=== PATIENT | female | born 1935 | race Two or more races ===

== ENCOUNTER 2022-12-19 11:47 | Outpatient (CLI) | payer OTHER ==
[~2022-12-19 11:47] MED LIST: PRILOSEC10 MG; ZESTRIL20 MG
== END 2022-12-19 12:02 | disposition home or self-care (01) ==
LOC: RAD 11:47
PROVIDERS: ATTEND Orthopaedic Surgery
DX: M25.551 Pain in right hip (principal)

== ENCOUNTER 2023-04-30 15:39 | Emergency (ER) | payer OTHER ==
[~2023-04-30] VITALS: Ht 152.4 cm; Wt 77.1 kg
[2023-04-30] MEDS ORDERED: LEVOTHYROXINE50 MCG PO (15:51)
[2023-04-30] MEDS ORDERED: OMEPRAZOLE20 MG PO (15:51)
[2023-04-30] MEDS ORDERED: LISINOPRIL40 MG PO (15:51)
[2023-04-30] MEDS ORDERED: EZETIMIBE10 MG PO (15:52)
[2023-04-30] MEDS ORDERED: ADULT LOW DOSE81 M1 PO (15:52)
[2023-04-30] MEDS ORDERED: ATORVASTATIN CA20 MG PO (15:52)
[2023-04-30] MEDS ORDERED: DONEPEZIL HCL23 MG PO (15:53)
[2023-04-30] MEDS ORDERED: HYDROCHLOROTHIA25 MG PO (15:53)
[2023-04-30] MEDS ORDERED: MEMANTINE HCL10 MG PO (15:54)
== END 2023-04-30 20:39 | disposition home or self-care (01) ==
LOC: ER 15:39
PROVIDERS: Emergency Medicine
DX: R53.1 Weakness (principal)

== ENCOUNTER 2023-05-29 16:30 | Emergency (ER) | payer OTHER ==
[~2023-05-29] VITALS: Ht 154.9 cm; Wt 90.7 kg
[~2023-05-29 16:30] MED LIST changes: +ADULT LOW DOSE81 M1 PO; +AMLODIPINE BESYL5 MG PO; +ARICEPT10 MG PO; +ATORVASTATIN CA20 MG PO; +CALCIUM 500-VI1 EAC6 PO; +COLACE100 MG PO; +CYMBALTA30 MG PO; +DONEPEZIL HCL23 MG PO; +EZETIMIBE10 MG PO; +GABAPENTIN300 MG PO; +HYDROCHLOROTHIA25 MG PO; +LEVOTHYROXINE50 MCG PO; +LIDODERM1 EACH TOP; +LISINOPRIL40 MG PO; +MEMANTINE HCL10 MG PO; +NAMENDA10 MG PO; +OMEPRAZOLE20 MG PO; +PROTEINEX-18 LI30 ML PO
[2023-05-29 18:17] LABS: PH,URINE 5.5 (5.0-8.0); URINE APPEARANCE Clear; URINE BILIRRUBIN Negative (NEGATIVE); URINE BLOOD Negative; URINE COLOR Yellow; URINE GLUCOSE Negative (NEGATIVE); URINE LEUKOCYTE Negative; URINE NITRATE Negative; URINE PROTEIN Trace (NEGATIVE); URINE UROBILINOGEN 0.2 E.U./dl
[2023-05-29 18:18] LABS: HEMATOCRIT 40.8 % (36.0-45.00); HEMOGLOBIN 14.2 g/dL (12.0-15.00); MEAN CELL VOLUME 93.8 fL (80.00-100.00); MEAN CORPUSCULAR HEMOGLOBIN 32.6 pg (27.00-32.0); MEAN CORPUSCULAR HGB CONC 34.8 g/dl (32.0-36.0); PLATELET COUNT 138 K/uL (150-450); RED BLOOD COUNT 4.35 M/uL (4.00-6.00); RED CELL DISTRIBUTION WIDTH 14.5 % (11.5-14.5)
[2023-05-29 18:21] LABS: URINE BACTERIA 13.8 uL (0.0-1933); URINE EPITHELIAL CELLS 4.4 uL (0.0-38.8)
[2023-05-29 18:36] LABS: URINE RBC 1.2 uL (0.0-20.8); URINE WBC 1.2 uL (0.0-23.2)
[2023-05-29 18:42] LABS: CALCIUM 9.2 mg/dL (8.5-10.1); CREATININE SERUM 1.57 mg/dL (0.55-1.02); GFR 31.24; POTASSIUM 4.35 mEq/L (3.5-5.1)
== END 2023-05-30 00:15 | disposition home or self-care (01) ==
LOC: ER 16:30
PROVIDERS: General Practice
DX: R50.9 Fever, unspecified (principal); I10 Essential (primary) hypertension; M19.90 Unspecified osteoarthritis, unspecified site; E11.9 Type 2 diabetes mellitus without complications
CPT/HCPCS: 36415; 71045; 96365; 96366; 99284; J3490; J7042

== ENCOUNTER 2023-06-03 14:25 | Inpatient (IN) | payer OTHER ==
[~2023-06-03] VITALS: Ht 160 cm; Wt 72.6 kg
[2023-06-03 15:40] LABS: HEMATOCRIT 41.8 % (36.0-45.00); HEMOGLOBIN 13.8 g/dL (12.0-15.00); MEAN CELL VOLUME 95.2 fL (80.00-100.00); MEAN CORPUSCULAR HEMOGLOBIN 31.4 pg (27.00-32.0); PLATELET COUNT 175 K/uL (150-450); RED BLOOD COUNT 4.39 M/uL (4.00-6.00); RED CELL DISTRIBUTION WIDTH 14.7 % (11.5-14.5)
--- NOTE | 2023-06-03 15:42 | NUR ---
2:30 PTE FEMINA DE 87 ANOS LLEGA A ER LETARGICA, HIPOACTIVA SE PASA A UNIDAD DE CRITICO POR ORDEN DE CUAL ORDENA ENTUBAR A LA PTE. 2:40 PTE ES ENTUBADA EXITOSAMENTE POR CON TUBO #7.5 FIJADO EN COMISURA LABIAL 22. SE ADMINISTRAN MEDICAMENTOS BRIDGETTE ORDEN MEDICA, SE CANALIZA A PTE EN AMBOS BRAZOS CON ANGIO #20 AREAS LIBRES DE EDEMA Y ERITEMA. SE INSERTA JOSÉ PTE EGRESA ORINA COLOR AMARILLO INTENSO. SE CONECTA A MONITOR CARDIACO Y OXIMETRIA. SE MANTIENE EN OBSERVACION POR CAMBIOS SIGNIFICATIVOS. PTE EN VENTILADOR MECANICO.SE LE MOHIT MUESTRAS DE MILDRED.
[2023-06-03 15:56] LABS: INR 1.14; PROTHROMBIN TIME 11.9 SECONDS (9.0-11.5)
[2023-06-03 15:58] LABS: CALCIUM 7.8 mg/dL (8.5-10.1); CREATININE SERUM 2.37 mg/dL (0.55-1.02); GFR 19.42; POTASSIUM 5.17 mEq/L (3.5-5.1)
[2023-06-03 16:01] LABS: ABG PH 7.448 (7.35-7.45); ABG pCO2 29.1 mmHg (35-45); BASE EXCESS -2.9 mmol/l; BICARBONATE 19.7 mmol/l (23-25); Tco2 20.6 mmol/l
[2023-06-03 16:09] LABS: PH,URINE 8.5 (5.0-8.0); URINE APPEARANCE Turbid; URINE BILIRRUBIN Negative (NEGATIVE); URINE BLOOD Small; URINE COLOR Dark Yellow; URINE GLUCOSE Negative (NEGATIVE); URINE LEUKOCYTE Large; URINE NITRATE Negative
[2023-06-03 16:12] LABS: URINE RBC 57.9 uL (0.0-20.8); URINE WBC 883.1 uL (0.0-23.2)
[2023-06-03 16:29] LABS: URINE BACTERIA > 9821.5 uL (0.0-1933); URINE PROTEIN 100 (NEGATIVE)
[2023-06-03 19:24] LABS: ABG PO2 566.4 mmHg (80-100)
[2023-06-03 19:27] LABS: allen test SATISFACTORY; o2 100 %; puncture site RADIAL LEFT
[2023-06-04 05:38] LABS: ABG PO2 141.2 mmHg (80-100); ABG pCO2 29.4 mmHg (35-45); BASE EXCESS -3.8 mmol/l; BICARBONATE 19.1 mmol/l (23-25); SaO2 99.2 %
[2023-06-04 06:50] LABS: allen test SATISFACTORY; o2 35 %; puncture site RADIAL RIGHT
[2023-06-04 07:15] LABS: HEMATOCRIT 37.9 % (36.0-45.00); HEMOGLOBIN 12.7 g/dL (12.0-15.00); MEAN CELL VOLUME 94.5 fL (80.00-100.00); MEAN CORPUSCULAR HEMOGLOBIN 31.6 pg (27.00-32.0); MEAN CORPUSCULAR HGB CONC 33.5 g/dl (32.0-36.0); RED BLOOD COUNT 4.01 M/uL (4.00-6.00); RED CELL DISTRIBUTION WIDTH 14.4 % (11.5-14.5)
[2023-06-04 07:26] LABS: ALBUMIN 2.4 gm/dL (3.4-5.0); BILIRUBIN TOTAL 0.66 mg/dL (0.3-1.2); CALCIUM 7.1 mg/dL (8.5-10.1); CREATININE SERUM 1.66 mg/dL (0.55-1.02); GFR 29.29; GLOBULINA 3.2 G/DL (2.4-3.5); MAGNESIUM 2.3 mg/dL (1.8-2.4); PHOSPHOROUS 3.5 mg/dL (2.5-4.9); POTASSIUM 3.83 mEq/L (3.5-5.1); TOTAL PROTEIN 5.6 gm/dL (6.4-8.2)
[2023-06-04 07:35] LABS: PLATELET COUNT 116 K/uL (150-450)
[2023-06-04 11:58] LABS: INR 1.1; PARTIAL THROMBOPLASTIN TIME 24.8 SECONDS (22.0-34.0); PROTHROMBIN TIME 11.5 SECONDS (9.0-11.5)
[2023-06-05 06:37] LABS: HEMOGLOBIN 11.6 g/dL (12.0-15.00); MEAN CELL VOLUME 95.5 fL (80.00-100.00); MEAN CORPUSCULAR HEMOGLOBIN 31.6 pg (27.00-32.0); MEAN CORPUSCULAR HGB CONC 33.1 g/dl (32.0-36.0); RED BLOOD COUNT 3.66 M/uL (4.00-6.00); RED CELL DISTRIBUTION WIDTH 14.7 % (11.5-14.5)
[2023-06-05 06:52] LABS: ALBUMIN 2.1 gm/dL (3.4-5.0); BILIRUBIN TOTAL 0.67 mg/dL (0.3-1.2); CALCIUM 6.9 mg/dL (8.5-10.1); CREATININE SERUM 1.04 mg/dL (0.55-1.02); GFR 50.24; GLOBULINA 2.8 G/DL (2.4-3.5); MAGNESIUM 2.2 mg/dL (1.8-2.4); PHOSPHOROUS 2.9 mg/dL (2.5-4.9); POTASSIUM 3.95 mEq/L (3.5-5.1); TOTAL PROTEIN 4.9 gm/dL (6.4-8.2)
[2023-06-05 07:04] LABS: PLATELET COUNT 91 K/uL (150-450)
[2023-06-05 08:24] LABS: ABG PH 7.401 (7.35-7.45); ABG PO2 126.4 mmHg (80-100); ABG pCO2 28.9 mmHg (35-45); BASE EXCESS -5.7 mmol/l; BICARBONATE 17.5 mmol/l (23-25); SaO2 98.8 %; Tco2 18.4 mmol/l
[2023-06-05 08:25] LABS: allen test SATISFACTORY; o2 30 %; puncture site RADIAL RIGHT
[2023-06-05 15:34] LABS: PH,URINE 5.5 (5.0-8.0); URINE APPEARANCE Clear; URINE BILIRRUBIN Negative (NEGATIVE); URINE BLOOD Negative; URINE COLOR Yellow; URINE GLUCOSE Negative (NEGATIVE); URINE LEUKOCYTE Moderate; URINE NITRATE Negative; URINE PROTEIN Negative (NEGATIVE); URINE UROBILINOGEN 0.2 E.U./dl
[2023-06-05 15:37] LABS: URINE BACTERIA 100.7 uL (0.0-1933); URINE EPITHELIAL CELLS 22.2 uL (0.0-38.8); URINE RBC 8.9 uL (0.0-20.8); URINE WBC 93.8 uL (0.0-23.2)
[2023-06-06 06:49] LABS: HEMATOCRIT 29.9 % (36.0-45.00); MEAN CELL VOLUME 96.7 fL (80.00-100.00); MEAN CORPUSCULAR HGB CONC 33.5 g/dl (32.0-36.0); RED BLOOD COUNT 3.09 M/uL (4.00-6.00); RED CELL DISTRIBUTION WIDTH 14.6 % (11.5-14.5)
[2023-06-06 07:00] LABS: MEAN CORPUSCULAR HEMOGLOBIN 32.3 pg (27.00-32.0); PLATELET COUNT 75 K/uL (150-450)
[2023-06-06 07:22] LABS: ALBUMIN 1.9 gm/dL (3.4-5.0); BILIRUBIN TOTAL 0.58 mg/dL (0.3-1.2); CALCIUM 7.1 mg/dL (8.5-10.1); CREATININE SERUM 0.76 mg/dL (0.55-1.02); GFR 72.16; GLOBULINA 2.6 G/DL (2.4-3.5); MAGNESIUM 2.2 mg/dL (1.8-2.4); POTASSIUM 3.42 mEq/L (3.5-5.1); TOTAL PROTEIN 4.5 gm/dL (6.4-8.2)
[2023-06-06 07:31] LABS: PHOSPHOROUS 1.8 mg/dL (2.5-4.9)
[2023-06-06 07:51] LABS: ABG PH 7.537 (7.35-7.45); ABG PO2 134.2 mmHg (80-100); ABG pCO2 22.2 mmHg (35-45); BASE EXCESS -1.8 mmol/l; BICARBONATE 18.5 mmol/l (23-25); SaO2 99.3 %; Tco2 19.2 mmol/l
[2023-06-06 07:59] LABS: allen test SATISFACTORY; o2 30 %; puncture site RADIAL LEFT
[2023-06-07 06:37] LABS: HEMATOCRIT 28.7 % (36.0-45.00); MEAN CELL VOLUME 97.8 fL (80.00-100.00); MEAN CORPUSCULAR HGB CONC 33.2 g/dl (32.0-36.0); RED BLOOD COUNT 2.93 M/uL (4.00-6.00)
[2023-06-07 06:38] LABS: HEMOGLOBIN 9.5 g/dL (12.0-15.00); MEAN CORPUSCULAR HEMOGLOBIN 32.4 pg (27.00-32.0); PLATELET COUNT 86 K/uL (150-450)
[2023-06-07 07:03] LABS: ALBUMIN 1.8 gm/dL (3.4-5.0); BILIRUBIN TOTAL 0.55 mg/dL (0.3-1.2); CREATININE SERUM 0.78 mg/dL (0.55-1.02); GFR 70.03; GLOBULINA 2.8 G/DL (2.4-3.5); TOTAL PROTEIN 4.6 gm/dL (6.4-8.2)
[2023-06-07 07:33] LABS: ABG PH 7.367 (7.35-7.45); ABG PO2 139.8 mmHg (80-100); ABG pCO2 33.6 mmHg (35-45); BASE EXCESS -5.5 mmol/l; BICARBONATE 18.8 mmol/l (23-25); Tco2 19.9 mmol/l
[2023-06-07 07:36] LABS: allen test SATISFACTORY; puncture site RADIAL LEFT
[2023-06-07 07:37] LABS: o2 30 %
[2023-06-08 06:26] LABS: ABG PH 7.419 (7.35-7.45); ABG PO2 165.6 mmHg (80-100); ABG pCO2 33.3 mmHg (35-45); SaO2 99.5 %
[2023-06-08 06:27] LABS: BASE EXCESS -2.5 mmol/l; BICARBONATE 21.1 mmol/l (23-25); Tco2 22.1 mmol/l
[2023-06-08 06:28] LABS: allen test SATISFACTORY; puncture site RADIAL RIGHT
[2023-06-08 06:29] LABS: o2 30 %
[2023-06-08 08:11] LABS: BILIRUBIN TOTAL 0.53 mg/dL (0.3-1.2); CALCIUM 8.4 mg/dL (8.5-10.1); CREATININE SERUM 0.65 mg/dL (0.55-1.02); GFR 86.42; GLOBULINA 3.1 G/DL (2.4-3.5); MAGNESIUM 1.8 mg/dL (1.8-2.4); PHOSPHOROUS 2.8 mg/dL (2.5-4.9); POTASSIUM 4.19 mEq/L (3.5-5.1); TOTAL PROTEIN 5.1 gm/dL (6.4-8.2)
[2023-06-08 08:29] LABS: HEMATOCRIT 29.9 % (36.0-45.00); HEMOGLOBIN 10.6 g/dL (12.0-15.00); MEAN CELL VOLUME 94.8 fL (80.00-100.00); MEAN CORPUSCULAR HEMOGLOBIN 33.6 pg (27.00-32.0); MEAN CORPUSCULAR HGB CONC 35.4 g/dl (32.0-36.0); RED BLOOD COUNT 3.16 M/uL (4.00-6.00); RED CELL DISTRIBUTION WIDTH 15.1 % (11.5-14.5)
[2023-06-08 09:08] LABS: PLATELET COUNT 110 K/uL (150-450)
[2023-06-08 11:46] LABS: ABG PH 7.381 (7.35-7.45); ABG pCO2 36.6 mmHg (35-45); BASE EXCESS -3.2 mmol/l; BICARBONATE 21.3 mmol/l (23-25); SaO2 98.5 %; Tco2 22.4 mmol/l
[2023-06-08 11:47] LABS: allen test SATISFACTORY; o2 40 %; puncture site RADIAL RIGHT
[2023-06-10 05:53] LABS: ABG PH 7.396 (7.35-7.45); ABG PO2 143.6 mmHg (80-100); ABG pCO2 42.6 mmHg (35-45); BASE EXCESS 0.5 mmol/l; BICARBONATE 25.5 mmol/l (23-25); SaO2 99.2 %; Tco2 26.8 mmol/l
[2023-06-10 06:14] LABS: allen test SATISFACTORY; o2 40 %; puncture site RADIAL RIGHT
[2023-06-10 07:07] LABS: HEMATOCRIT 28.6 % (36.0-45.00); HEMOGLOBIN 9.5 g/dL (12.0-15.00); MEAN CELL VOLUME 96.7 fL (80.00-100.00); MEAN CORPUSCULAR HEMOGLOBIN 32.2 pg (27.00-32.0); MEAN CORPUSCULAR HGB CONC 33.3 g/dl (32.0-36.0); RED BLOOD COUNT 2.96 M/uL (4.00-6.00); RED CELL DISTRIBUTION WIDTH 14.9 % (11.5-14.5)
[2023-06-10 07:28] LABS: PLATELET COUNT 116 K/uL (150-450)
[2023-06-10 07:36] LABS: ALBUMIN 1.7 gm/dL (3.4-5.0); BILIRUBIN TOTAL 0.36 mg/dL (0.3-1.2); CALCIUM 8.4 mg/dL (8.5-10.1); CREATININE SERUM 0.54 mg/dL (0.55-1.02); GFR 107.04; MAGNESIUM 1.5 mg/dL (1.8-2.4); PHOSPHOROUS 2.3 mg/dL (2.5-4.9); POTASSIUM 3.66 mEq/L (3.5-5.1); TOTAL PROTEIN 4.7 gm/dL (6.4-8.2)
[2023-06-11 08:07] LABS: HEMOGLOBIN 9.7 g/dL (12.0-15.00); MEAN CELL VOLUME 95.6 fL (80.00-100.00); MEAN CORPUSCULAR HEMOGLOBIN 33.1 pg (27.00-32.0); MEAN CORPUSCULAR HGB CONC 34.6 g/dl (32.0-36.0); PLATELET COUNT 141 K/uL (150-450); RED BLOOD COUNT 2.93 M/uL (4.00-6.00); RED CELL DISTRIBUTION WIDTH 15.3 % (11.5-14.5)
[2023-06-13 07:00] LABS: HEMATOCRIT 28.6 % (36.0-45.00); HEMOGLOBIN 9.8 g/dL (12.0-15.00); MEAN CELL VOLUME 97.3 fL (80.00-100.00); MEAN CORPUSCULAR HEMOGLOBIN 33.2 pg (27.00-32.0); MEAN CORPUSCULAR HGB CONC 34.1 g/dl (32.0-36.0); RED BLOOD COUNT 2.94 M/uL (4.00-6.00); RED CELL DISTRIBUTION WIDTH 15.3 % (11.5-14.5)
[2023-06-13 07:11] LABS: ALBUMIN 1.7 gm/dL (3.4-5.0); BILIRUBIN TOTAL 0.39 mg/dL (0.3-1.2); CALCIUM 8.1 mg/dL (8.5-10.1); CREATININE SERUM 0.65 mg/dL (0.55-1.02); GFR 86.42; GLOBULINA 3.1 G/DL (2.4-3.5); PHOSPHOROUS 2.2 mg/dL (2.5-4.9); POTASSIUM 3.96 mEq/L (3.5-5.1); TOTAL PROTEIN 4.8 gm/dL (6.4-8.2)
[2023-06-13 07:59] LABS: MAGNESIUM 1.3 mg/dL (1.8-2.4)
[2023-06-13 08:06] LABS: PLATELET COUNT 148 K/uL (150-450)
[2023-06-14] MEDS ORDERED: INTEGRA PLUS C1 EACH PO (12:35)
[2023-06-14] MEDS ORDERED: TOPROL XL25 M1 PO (12:36)
[2023-06-14] MEDS ORDERED: LISINOPRIL10 MG PO (12:36)
[2023-06-14] MEDS ORDERED: CALCIUM 500-VI1 EAC6 PO (12:37)
[2023-06-14] MEDS ORDERED: PRE PROTEIN 2030 ML PO (12:38)
[2023-06-14] MEDS ORDERED: OMEPRAZOLE20 M2 PO (12:39)
[2023-06-14] MEDS ORDERED: ECOTRIN81 MG PO (12:40)
[2023-06-14] MEDS ORDERED: DRIZALMA SPRINK20 MG PO (12:40)
[2023-06-14] MEDS ORDERED: ZETIA10 MG PO (12:41)
[2023-06-14] MEDS ORDERED: ATORVASTATIN CA20 MG PO (12:42)
[2023-06-14] MEDS ORDERED: D3-501250 MCG PO (12:43)
[2023-06-14] MEDS ORDERED: NAMENDA10 MG PO (12:44)
[2023-06-14] MEDS ORDERED: LEVOTHYROXINE50 MC1 PO (12:45)
[2023-06-14] MEDS ORDERED: DOCUSATE SODIU100 M1 PO (12:46)
== END 2023-06-14 20:03 | disposition home or self-care (01) | DRG 871 ==
LOC: ER 14:25 → ICU 19:50 → MEDI 06-10 20:09
PROVIDERS: General Practice; Internal Medicine Nephrology; Internal Medicine Pulmonary Disease; Student in an Organized Health Care Education/Training Program; ADMIT Internal Medicine; ATTEND Internal Medicine
PROC: 0BH17EZ Insertion of Endotracheal Airway into Trachea, Via Natural or Artificial Opening (ICD-10-PCS; principal; 2023-06-03)
PROC: 5A1945Z Respiratory Ventilation, 24-96 Consecutive Hours (ICD-10-PCS; 2023-06-03)
PROC: BW21ZZZ Computerized Tomography (CT Scan) of Abdomen and Pelvis (ICD-10-PCS; 2023-06-03)
PROC: 3E0F7GC Introduction of Other Therapeutic Substance into Respiratory Tract, Via Natural or Artificial Opening (ICD-10-PCS; 2023-06-03)
PROC: 4A12X4Z Monitoring of Cardiac Electrical Activity, External Approach (ICD-10-PCS; 2023-06-03)
PROC: 02HV33Z Insertion of Infusion Device into Superior Vena Cava, Percutaneous Approach (ICD-10-PCS; 2023-06-04)
PROC: 0DH67UZ Insertion of Feeding Device into Stomach, Via Natural or Artificial Opening (ICD-10-PCS; 2023-06-04)
PROC: B020ZZZ Computerized Tomography (CT Scan) of Brain (ICD-10-PCS; 2023-06-05)
PROC: 5A0935A Assistance with Respiratory Ventilation, Less than 24 Consecutive Hours, High Flow/Velocity Cannula (ICD-10-PCS; 2023-06-08)
PROC: 0BP1XDZ Removal of Intraluminal Device from Trachea, External Approach (ICD-10-PCS; 2023-06-08)
PROC: 0DP0XUZ Removal of Feeding Device from Upper Intestinal Tract, External Approach (ICD-10-PCS; 2023-06-09)
DX: A41.9 Sepsis, unspecified organism (principal); J96.00 Acute respiratory failure, unspecified whether with hypoxia or hypercapnia; R65.21 Severe sepsis with septic shock; N39.0 Urinary tract infection, site not specified; N17.9 Acute kidney failure, unspecified; G93.40 Encephalopathy, unspecified; F06.71 Mild neurocognitive disorder due to known physiological condition with behavioral disturbance; J90 Pleural effusion, not elsewhere classified; D69.6 Thrombocytopenia, unspecified; G40.901 Epilepsy, unspecified, not intractable, with status epilepticus; R00.0 Tachycardia, unspecified; E87.5 Hyperkalemia; G25.2 Other specified forms of tremor; G30.0 Alzheimer's disease with early onset; I13.10 Hypertensive heart and chronic kidney disease without heart failure, with stage 1 through stage 4 chronic kidney disease, or unspecified chronic kidney disease; N18.9 Chronic kidney disease, unspecified; E03.9 Hypothyroidism, unspecified; D86.9 Sarcoidosis, unspecified; G30.8 Other Alzheimer's disease; Z88.0 Allergy status to penicillin

== ENCOUNTER 2023-06-27 13:51 | Emergency (ER) | payer OTHER ==
[~2023-06-27] VITALS: Ht 154.9 cm; Wt 83.9 kg
[~2023-06-27 13:51] MED LIST changes: +D3-501250 MCG PO; +DOCUSATE SODIU100 M1 PO; +DRIZALMA SPRINK20 MG PO; +ECOTRIN81 MG PO; +INTEGRA PLUS C1 EACH PO; +LEVOTHYROXINE50 MC1 PO; +LISINOPRIL10 MG PO; +OMEPRAZOLE20 M2 PO; +PRE PROTEIN 2030 ML PO; +TOPROL XL25 M1 PO; +ZETIA10 MG PO
[2023-06-27] MEDS ORDERED: INTEGRA CAPSUL1 EACH PO (14:21)
[2023-06-27] MEDS ORDERED: DONEPEZIL HCL23 MG PO (14:22)
[2023-06-27] MEDS ORDERED: KAPSPARGO SPRIN25 MG PO (14:22)
[2023-06-27] MEDS ORDERED: MEMANTINE HCL10 MG PO (14:22)
[2023-06-27] MEDS ORDERED: EZETIMIBE10 MG PO (14:22)
[2023-06-27] MEDS ORDERED: PRE PROTEIN1 EACH PO (14:23)
[2023-06-27] MEDS ORDERED: VITAMIN C100 MG PO (14:23)
[2023-06-27] MEDS ORDERED: ATORVASTATIN CA20 MG PO (14:23)
[2023-06-27] MEDS ORDERED: VITAMIN D310 MC4 PO (14:24)
[2023-06-27 16:13] LABS: HEMATOCRIT 39.7 % (36.0-45.00); HEMOGLOBIN 13.6 g/dL (12.0-15.00); MEAN CELL VOLUME 96.2 fL (80.00-100.00); MEAN CORPUSCULAR HGB CONC 34.3 g/dl (32.0-36.0); PLATELET COUNT 203 K/uL (150-450); RED BLOOD COUNT 4.13 M/uL (4.00-6.00); RED CELL DISTRIBUTION WIDTH 16.3 % (11.5-14.5)
[2023-06-27 16:35] LABS: URINE APPEARANCE Clear; URINE BILIRRUBIN Negative (NEGATIVE); URINE BLOOD Negative; URINE COLOR Yellow; URINE GLUCOSE Negative (NEGATIVE); URINE LEUKOCYTE Negative; URINE NITRATE Negative; URINE PROTEIN Negative (NEGATIVE)
[2023-06-27 16:39] LABS: URINE BACTERIA 406.9 uL (0.0-1933); URINE EPITHELIAL CELLS 6.4 uL (0.0-38.8); URINE RBC 16.5 uL (0.0-20.8); URINE WBC 4.4 uL (0.0-23.2)
[2023-06-27 17:30] LABS: ALBUMIN 2.5 gm/dL (3.4-5.0); BILIRUBIN TOTAL 0.42 mg/dL (0.3-1.2); CALCIUM 9.2 mg/dL (8.5-10.1); CREATININE SERUM 0.86 mg/dL (0.55-1.02); GFR 62.56; GLOBULINA 4.5 G/DL (2.4-3.5); POTASSIUM 4.38 mEq/L (3.5-5.1)
== END 2023-06-27 19:22 ==
LOC: ER 13:51
PROVIDERS: Emergency Medicine; Nurse Practitioner Family
DX: L89.151 Pressure ulcer of sacral region, stage 1 (principal); Z91.013 Allergy to seafood; Z91.041 Radiographic dye allergy status; Z91.018 Allergy to other foods; G30.8 Other Alzheimer's disease; F02.80 Dementia in other diseases classified elsewhere, unspecified severity, without behavioral disturbance, psychotic disturbance, mood disturbance, and anxiety; Z74.01 Bed confinement status; K21.9 Gastro-esophageal reflux disease without esophagitis; E03.9 Hypothyroidism, unspecified; I12.9 Hypertensive chronic kidney disease with stage 1 through stage 4 chronic kidney disease, or unspecified chronic kidney disease; N18.9 Chronic kidney disease, unspecified; M51.36 Other intervertebral disc degeneration, lumbar region; D86.89 Sarcoidosis of other sites; K57.90 Diverticulosis of intestine, part unspecified, without perforation or abscess without bleeding; K62.5 Hemorrhage of anus and rectum; Z88.0 Allergy status to penicillin

== ENCOUNTER 2023-07-10 14:15 | Emergency (ER) | payer OTHER ==
[~2023-07-10] VITALS: Ht 154.9 cm; Wt 86.2 kg
[~2023-07-10 14:15] MED LIST changes: +INTEGRA CAPSUL1 EACH PO; +KAPSPARGO SPRIN25 MG PO; +PRE PROTEIN1 EACH PO; +VITAMIN C100 MG PO; +VITAMIN D310 MC4 PO
[2023-07-10 16:53] LABS: MEAN CORPUSCULAR HEMOGLOBIN 32.7 pg (27.00-32.0); MEAN CORPUSCULAR HGB CONC 34.1 g/dl (32.0-36.0); PLATELET COUNT 157 K/uL (150-450); RED BLOOD COUNT 3.96 M/uL (4.00-6.00); RED CELL DISTRIBUTION WIDTH 14.6 % (11.5-14.5)
[2023-07-10 17:04] LABS: INR 1.01; PARTIAL THROMBOPLASTIN TIME 24.8 SECONDS (22.0-34.0); PROTHROMBIN TIME 10.6 SECONDS (9.0-11.5)
[2023-07-10 17:12] LABS: ALBUMIN 2.4 gm/dL (3.4-5.0); BILIRUBIN TOTAL 0.37 mg/dL (0.3-1.2); CALCIUM 9.2 mg/dL (8.5-10.1); CREATININE SERUM 0.99 mg/dL (0.55-1.02); GFR 53.18; GLOBULINA 4.5 G/DL (2.4-3.5); POTASSIUM 4.44 mEq/L (3.5-5.1); TOTAL PROTEIN 6.9 gm/dL (6.4-8.2)
[2023-07-10 17:41] LABS: PH,URINE 6.5 (5.0-8.0); URINE APPEARANCE Turbid; URINE BILIRRUBIN Negative (NEGATIVE); URINE BLOOD Small; URINE COLOR Dark Yellow; URINE GLUCOSE Negative (NEGATIVE); URINE LEUKOCYTE Large; URINE NITRATE Positive; URINE PROTEIN 30 (NEGATIVE); URINE UROBILINOGEN 0.2 E.U./dl
[2023-07-10 17:42] LABS: URINE EPITHELIAL CELLS 25.9 uL (0.0-38.8); URINE RBC 30.3 uL (0.0-20.8)
[2023-07-10 17:47] LABS: URINE BACTERIA > 9821.5 uL (0.0-1933)
[2023-07-10] MEDS ORDERED: MACRODANTIN100 M1 PO (19:33)
[2023-07-10] MEDS ORDERED: [UNRECOGNIZED DRUG - OTHER] TOP (19:36)
== END 2023-07-10 21:06 | disposition home or self-care (01) ==
LOC: ER 14:15
PROVIDERS: General Practice
DX: K62.5 Hemorrhage of anus and rectum (principal); Z91.041 Radiographic dye allergy status; Z91.018 Allergy to other foods; Z91.013 Allergy to seafood; Z88.0 Allergy status to penicillin; I10 Essential (primary) hypertension; K57.32 Diverticulitis of large intestine without perforation or abscess without bleeding; N39.0 Urinary tract infection, site not specified
CPT/HCPCS: 36415; 96365; 99284; J0744

== ENCOUNTER 2023-10-10 08:13 | Day surgery (SDC) | payer OTHER ==
[~2023-10-10 08:13] MED LIST changes: +MACRODANTIN100 M1 PO; +[UNRECOGNIZED DRUG - OTHER] TOP
[2023-10-10] MEDS ORDERED: RECTICARE30 GM TOP (11:54)
[2023-10-10] MEDS ORDERED: DIPHENHYDRAMINE HCL 50 MG/ML VIAL 1ML IV ONE (12:00)
[2023-10-10] MEDS ORDERED: fentaNYL CITRATE 50 MCG/ML AMPUL IV ONE (12:00)
[2023-10-10] MEDS ORDERED: MIDAZOLAM HCL 2 MG/2 ML VIAL IV ONE (12:00)
== END 2023-10-10 13:25 | disposition home or self-care (01) ==
LOC: AMB-ENDOS 08:13
PROVIDERS: ATTEND Surgery
DX: K57.30 Diverticulosis of large intestine without perforation or abscess without bleeding (principal); K62.1 Rectal polyp; K62.0 Anal polyp; K64.8 Other hemorrhoids